=== PATIENT | male | born 1985 | race Two or more races ===

== ENCOUNTER 2024-03-30 12:51 | Emergency (ER) | payer MEDICAID, OTHER ==
[~2024-03-30] VITALS: Ht 162.6 cm; Wt 92.5 kg
[2024-03-30 13:22] LABS: Urine Bacteria None Seen /hpf (None Seen)
[2024-03-30 13:38] LABS: Urine Blood TRACE /uL (Negative); Urine Clarity Clear (Clear); Urine Color Yellow (Yellow); Urine Mucus FEW (None Seen); Urine Protein, UAD 1+ (Negative); Urine Specific Gravity 1.021 (1.001-1.035); Urine Urobilinogen Normal (Negative); Urine WBC 5 /hpf (0 - 3); Urine pH 5.5 (5.0-9.0)
[2024-03-30 14:27] LABS: Basophils # (auto) 0 10 ^3/uL (0-0.2); Basophils % (auto) 0.3 % (0.0-2.0); Eosinophils # (auto) 0 10 ^3/uL (0-0.8); Eosinophils % (auto) 0.5 % (0.0-7.0); Hematocrit 49.1 % (41.0-53.0); Hemoglobin 16.6 g/dL (13.5-17.5); Lymphocytes # (auto) 0.6 10 ^3/uL (0.4-5.4); Lymphocytes % (auto) 7.7 % (10.0-50.0); Mean Corpuscular Hgb Conc. 33.8 g/dL (32.0-36.0); Mean Corpuscular Volume 91.5 fL (80.0-100.0); Monocytes # (auto) 1.1 10 ^3/uL (0-1.3); Monocytes % (auto) 13.2 % (0.0-12.0); Neutrophils # (auto) 6.5 10 ^3/uL (1.6-8.6); Neutrophils % (auto) 78.3 % (37.0-80.0); Nucleated Red Blood Cells % 0.1 %; Platelet Count (auto) 231 10^3/uL (140-450); Red Blood Cells 5.37 10^6/uL (4.5-5.90); Red Cell Distribution Width 13.1 % (11.8-14.3); White Blood Cell 8.3 10^3/uL (4.4-10.8)
[2024-03-30 14:30] VITALS: BP 135/86; PULSE 94; RESP 18; TEMP 98; O2SAT 96
[2024-03-30] MEDS: LIDOCAINE VISCOUS 2% 15ML UD PO ONE (14:36)
[2024-03-30] MEDS: ONDANSETRON ODT 4 MG TAB PO ONE (14:36)
[2024-03-30] MEDS: MAALOX PLUS or MAALOX 30 ML PO ONE (14:36)
[2024-03-30] MEDS: KETOROLAC TROMETH 60MG/2ML VIAL IM ONE (14:38)
[2024-03-30 14:48] LABS: Alanine Aminotransferase 46 U/L (7-40); Alkaline Phosphatase 64 U/L (46-116); Anion Gap 9 (5-15); Aspartate Aminotransferase 19 U/L (13-40); BUN/Creatinine Ratio 13.1 (10.0-20.0); Bilirubin, Total 0.5 mg/dL (0.2-1.0); Blood Urea Nitrogen 21 mg/dL (9-23); Calcium 10.2 mg/dL (8.7-10.4); Carbon Dioxide 25 mmol/L (20-31); Chloride 105 mmol/L (98-107); Glucose 108 mg/dL (74-106); Magnesium 2.4 mg/dL (1.6-2.6); Potassium 4.1 mmol/L (3.5-5.1); Sodium 139 mmol/L (136-145); Total Protein 8.4 g/dL (5.7-8.2)
[2024-03-30 14:59] LABS: Lipase 54 U/L (12-53)
[2024-03-30] MEDS ORDERED: FAMO20TA10 PO (15:33)
[2024-03-30] MEDS ORDERED: ZOFR4T PO (15:33)
== END 2024-03-30 16:04 | disposition home or self-care (01) ==
LOC: ER 12:51
DX: R10.9 Unspecified abdominal pain (principal); E86.0 Dehydration; Z79.899 Other long term (current) drug therapy
CPT/HCPCS: 36415; 74176; 80053; 81001; 83690; 83735; 84484; 85025; 96372; 99285; J1885; Q0162